=== PATIENT | male | born 1975 | race Caucasian/White ===

== ENCOUNTER 2018-03-10 13:10 | Emergency (ER) | payer BC ==
[~2018-03-10 13:10] MED LIST: CLI150 PO; PER PO
[2018-03-10] MEDS ORDERED: OMEP-137 PO (13:18)
[2018-03-10] MEDS ORDERED: ALBU8.5H IH (13:18)
[2018-03-10] MEDS ORDERED: LIDOCAINE 1% MDV 200 MG/20 ML INJ ONE (13:25)
[2018-03-10] MEDS ORDERED: cefTRIAXone 1 GM VIAL IM ONE (13:25)
[2018-03-10] MEDS ORDERED: APAP/HYDROCODONE 325/5 TAB PO ONE (13:25)
[2018-03-10] MEDS ORDERED: HYDR-4309 PO (13:27)
[2018-03-10] MEDS ORDERED: AMOX500T10 PO (13:27)
--- NOTE | 2018-03-10 13:28 | ER Report ---
History and Physical Time Seen By MD: 13:10 Hx. of Stated Complaint: patient is reporting dental pain on the left lower jaw. he has an appointment with his dentist on wednesday but is unable to deal with the pain HPI/ROS CHIEF COMPLAINT: Tooth pain HISTORY OF PRESENT ILLNESS: Patient is a 42-year-old male who presents the ED with complaint of tooth pain for the past 2 days. He states that today he started noticing swelling in his left lower molar area. He denies any fever. He states he has been taking ibuprofen with minimal relief of his pain. He states that he has had multiple tooth issues in the past and does have an appointment with the dentist in the next 3 days. He denies any nausea or vomiting. He states that he has been told that he always has a high heart rate. REVIEW OF SYSTEMS: Respiratory: No cough, no dyspnea. Cardiovascular: No chest pain, no palpitations. Gastrointestinal: No vomiting, no abdominal pain. Musculoskeletal: No back pain. Allergies: Coded Allergies: No Known Drug Allergies (Verified , 05/26/10) Home Meds Reported Medications Albuterol Sulfate 90 Mcg/Act (PROAIR HFA 90 MCG/ACT) 8.5 Gm Hfa.aer.ad, 1-2 PUFF IH 3-4XD, INHALER 03/10/18 Omeprazole (OMEPRAZOLE) 20 Mg Tablet.dr, 20 MG PO QDAY, TAB 03/10/18 Discontinued Reported Medications Oxycodone/Acetaminophen (OXYCODONE/ACETAMINOPHEN 5MG/325 MG) 5 Mg/325 Mg Tab, 1 TAB PO Q4-6H Y, #15 0 Refills 05/26/10 Clindamycin Hcl (Cleocin) 150 Mg Cap, 300 MG PO QID, #28 0 Refills 05/26/10 Reviewed Nurses Notes: Yes Old Medical Records Reviewed: Yes Hx Substance Use Disorder: No Constitutional Vital Sign - Last 24 Hours 03/10/18 13:13 Temp 99.0 Pulse 135 Resp 24 B/P (MAP) 182/98 Pulse Ox 91 O2 Delivery Room Air Physical Exam General Appearance: The patient is alert, has no immediate need for airway protection and no current signs of toxicity. Patient appears to be in some mild distress. Eyes: Pupils equal and round no injection. Mouth: Poor dentition throughout. There is a fractured left lower molar with some mild surrounding erythema. There is some soft tissue swelling around this area of his cheek. Respiratory: Chest is non tender, lungs are clear to auscultation. Cardiac: regular rate and rhythm Musculoskeletal: Neck: Neck is supple and non tender. Extremities have full range of motion and are non tender. Skin: No rashes or lesions. Medical Decision Making ED Course/Re-evaluation ED Course Patient given 1 g IM Rocephin as well as [place] 5/325mg PO. Encouraged him to drink plenty of fluids. Will place him on oral antibiotics and pain medication. He should follow-up with his dentist as soon as possible. Decision to Disposition Date: March 10, 2018 Decision to Disposition Time: 13:25 Depart Departure Latest Vital Signs Vital Signs Date Time Temp Pulse Resp B/P (MAP) Pulse Ox O2 Delivery O2 Flow Rate FiO2 03/10/18 13:13 99.0 135 24 182/98 91 Room Air Impression: Primary Impression: Tooth abscess Condition: Improved Disposition: HOME OR SELF-CARE Referrals: AZEEM RODRIGUEZ (PCP) New Scripts Hydrocodone Bit/Acetaminophen (NORCO 5-325 TABLET) 1 Each Tablet 1 EACH PO Q4-6H Y for PAIN, #10 TAB Prov: NORMA LALA PA-C 03/10/18 Amoxicillin 500 Mg Tab (AMOXICILLIN 500 MG TAB) 500 Mg Tablet 1 TAB PO Q8H, #30 TAB Prov: NORMA LALA PA-C 03/10/18 Patient Instructions: Dental Abscess (ED) Additional Instructions: Stay well-hydrated. Follow-up with dentist as soon as possible. If having any worsening or concerning symptoms may return to the emergency department. NORMA LALA PA-C March 10, 2018 13:28
[2018-03-10 13:45] VITALS: BP 124/82
== END 2018-03-10 13:52 | disposition home or self-care (01) ==
LOC: ER 13:21
DX: K04.7 Periapical abscess without sinus (principal)
CPT/HCPCS: 96372; 99283; J0696; J2001